=== PATIENT | female | born 1970 | race Caucasian/White ===

== ENCOUNTER 2021-03-09 19:56 | Emergency (ER) | payer BC ==
[~2021-03-09] VITALS: Ht 160 cm; Wt 72.6 kg
[2021-03-09] MEDS ORDERED: PERCOCET 5-3251 EACH PO (21:44)
[2021-03-09] MEDS ORDERED: IBUPROFEN 800800 M1 PO (22:06)
[2021-03-09] MEDS ORDERED: CEPHALEXIN500 MG PO (22:06)
[2021-03-09 22:24] VITALS: BP 140/79
== END 2021-03-09 22:23 | disposition home or self-care (01) ==
LOC: ER 19:56
DX: S62.634A Displaced fracture of distal phalanx of right ring finger, initial encounter for closed fracture (principal); S30.0XXA Contusion of lower back and pelvis, initial encounter; W10.8XXA Fall (on) (from) other stairs and steps, initial encounter; Y93.89 Activity, other specified; Y92.89 Other specified places as the place of occurrence of the external cause; Y99.8 Other external cause status